=== PATIENT | male | born 1970 | race Two or more races ===

== ENCOUNTER 2021-12-13 13:34 | Inpatient (IN) | payer OTHER ==
[~2021-12-13] VITALS: Ht 152.4 cm; Wt 74.8 kg
[2021-12-13] MEDS ORDERED: BUPROPION XL450 MG (13:59)
== END 2021-12-25 16:55 | disposition home or self-care (01) | DRG 813 ==
LOC: ER → MEDI 21:13
PROVIDERS: ADMIT Internal Medicine; ATTEND Internal Medicine
PROC: BW40ZZZ Ultrasonography of Abdomen (ICD-10-PCS; 2021-12-13)
PROC: BB24ZZZ Computerized Tomography (CT Scan) of Bilateral Lungs (ICD-10-PCS; 2021-12-13)
PROC: 30233R1 Transfusion of Nonautologous Platelets into Peripheral Vein, Percutaneous Approach (ICD-10-PCS; 2021-12-14)
PROC: BB24ZZZ Computerized Tomography (CT Scan) of Bilateral Lungs (ICD-10-PCS; principal; 2021-12-16)
DX: D69.59 Other secondary thrombocytopenia (principal); J18.0 Bronchopneumonia, unspecified organism; C46.9 Kaposi's sarcoma, unspecified; D72.821 Monocytosis (symptomatic); A51.0 Primary genital syphilis; Z21 Asymptomatic human immunodeficiency virus [HIV] infection status; Z20.822 Contact with and (suspected) exposure to COVID-19

== ENCOUNTER 2021-12-27 07:01 | Inpatient (IN) | payer OTHER ==
[~2021-12-27] VITALS: Ht 175.3 cm; Wt 77.1 kg
[~2021-12-27 07:01] MED LIST: BUPROPION XL450 MG
[2021-12-27] MEDS ORDERED: CLONAZEPAM0.25 MG (07:19)
[2021-12-27] MEDS ORDERED: PEPCID AC20 MG (07:20)
[2021-12-27] MEDS ORDERED: FLUCONAZOLE200 MG (07:20)
[2021-12-27] MEDS ORDERED: SULFAMETHOXAZO500 GM (07:20)
--- NOTE | 2021-12-27 07:22 | NUR ---
PACIENTE MASCULINO ALERTA Y ORIENTADO X3, REFIERE FALTA DE AIRE, SE LE MIDE LA O2- 93%, Y SE LE REALIZA EKG Y SE LE NOTIFICA A .
--- NOTE | 2021-12-27 07:35 | NUR ---
PACIENTE EVALUADO POR EL QUIEN ORDENA TRATAMIENTO MEDICO. SE NOTIFICA PERSONAL DE TERAPIA RESPIRATORIA A MISS VALDEZ SOBRE ABGS.
--- NOTE | 2021-12-27 07:56 | NUR ---
PACIENTE EVALUADO POR DR KACI KILPATRICK [place] MEDICO, SE LE ORIENTA A PACIENTE SOBRE EL MISMO Y VERBALIZA ENTENDER. SE LE COLECTAN MUESTRAS DE LABORATORIO Y SE CANALIZA BAJO MEDIDAS ASEPTICAS. SE ADMINISTRAN MEDICAMENTOS KANIKA ORDEN. PERSONAL DE TERAPIA LE REALIZA [place] ORDENADO.
== END 2022-01-01 21:02 | disposition home or self-care (01) | DRG 194 ==
LOC: ER 07:01 → SURG 18:08 → SEC-K 18:08 → SURH 20:24 → SURG 12-28 11:05 → MEDI 12-29 16:27
PROVIDERS: ADMIT Internal Medicine; ATTEND Internal Medicine
PROC: B54BZZZ Ultrasonography of Right Lower Extremity Veins (ICD-10-PCS; principal; 2021-12-27)
PROC: BW24ZZZ Computerized Tomography (CT Scan) of Chest and Abdomen (ICD-10-PCS; 2021-12-27)
DX: J16.8 Pneumonia due to other specified infectious organisms (principal); B20 Human immunodeficiency virus [HIV] disease; J81.1 Chronic pulmonary edema; C46.7 Kaposi's sarcoma of other sites; R06.02 Shortness of breath; R09.02 Hypoxemia; J44.9 Chronic obstructive pulmonary disease, unspecified; I87.2 Venous insufficiency (chronic) (peripheral); Z20.822 Contact with and (suspected) exposure to COVID-19; F41.8 Other specified anxiety disorders; D69.6 Thrombocytopenia, unspecified; F17.200 Nicotine dependence, unspecified, uncomplicated

== ENCOUNTER 2022-01-06 06:42 | Inpatient (IN) | payer OTHER ==
[~2022-01-06] VITALS: Ht 175.3 cm; Wt 77.1 kg
[~2022-01-06 06:42] MED LIST changes: +CLONAZEPAM0.25 MG; +FLUCONAZOLE200 MG; +PEPCID AC20 MG; +SULFAMETHOXAZO500 GM
--- NOTE | 2022-01-06 06:58 | NUR ---
SE RECIBE PTE ALERTA ORIENTADO X 3. PTE REFIERE TENER DIFICULTAD RRESPIRATORIA,TOS,DOLOR DE KALE NAUSEAS.PTE ESTUVO HOSPITALIZADO HACE 2 SEMANAS POR PNEUMONIA.PTE DE . REFIERE JAREN CONTINUADO [place] MEDICO EL CUAL EMPEORARON LOS SINTOMAS CHRISTI EN LA ANOCHE. SE GAURI S/V Y SE UBICA.
--- NOTE | 2022-01-06 07:56 | NUR ---
SE RECIBE MASCULINO ALERTA Y ORIENTADO X3 EVALUADO POR DR CRAVEN QUIEN ORDENA TRATAMIENTO MEDICO. SE EDUCA A PTE Y SE REALIZA ORDEN MEDICA EN MARCOS TOTALIDAD. SE GAURI MUESTRAS SIGUIENDO MEDIDAS ASEPTICAS. SE POSICIONA A PTE POSICION SEMI-KHAN POR DIFICULTAD RESPIRATORIA. CANULA NASAL A 3L/MIN. PEND X-RAY.
== END 2022-01-12 00:37 | disposition expired | DRG 974 ==
LOC: ER 06:42 → ICU 12:43 → MEDJ 12:43 → ICU 01-08 12:03
PROVIDERS: ADMIT Internal Medicine; ATTEND Internal Medicine
PROC: B020YZZ Computerized Tomography (CT Scan) of Brain using Other Contrast (ICD-10-PCS; 2022-01-07)
PROC: 4A12X4Z Monitoring of Cardiac Electrical Activity, External Approach (ICD-10-PCS; 2022-01-08)
PROC: 0BH17EZ Insertion of Endotracheal Airway into Trachea, Via Natural or Artificial Opening (ICD-10-PCS; principal; 2022-01-09)
PROC: 5A1955Z Respiratory Ventilation, Greater than 96 Consecutive Hours (ICD-10-PCS; 2022-01-09)
PROC: 30243R1 Transfusion of Nonautologous Platelets into Central Vein, Percutaneous Approach (ICD-10-PCS; 2022-01-09)
PROC: 02HV33Z Insertion of Infusion Device into Superior Vena Cava, Percutaneous Approach (ICD-10-PCS; 2022-01-10)
DX: J18.9 Pneumonia, unspecified organism (principal); B45.1 Cerebral cryptococcosis; B20 Human immunodeficiency virus [HIV] disease; J96.01 Acute respiratory failure with hypoxia; R04.2 Hemoptysis; M32.11 Endocarditis in systemic lupus erythematosus; C46.9 Kaposi's sarcoma, unspecified; D72.829 Elevated white blood cell count, unspecified; D69.6 Thrombocytopenia, unspecified; B08.1 Molluscum contagiosum; Z97.8 Presence of other specified devices; Z57.31 Occupational exposure to environmental tobacco smoke; Z72.0 Tobacco use; Z86.16 Personal history of COVID-19